=== PATIENT | male | born 2000 | race Caucasian/White ===

== ENCOUNTER 2022-01-27 15:55 | Emergency (ER) | payer BC, SELFPAY ==
--- NOTE | 2022-01-27 15:57 | ED.EAR ---
HPI - Ear Problem General Chief complaint: Ear Stated complaint: Ear Pain Time Seen by Provider: 01/27/22 15:57 Source: patient Mode of arrival: ambulatory Limitations: no limitations History of Present Illness HPI Narrative: Mr. Brown is a 21-year-old male patient presenting to the clinic today with complaints of right ear pain that just began this morning. He reports no fever or chills. Related Data Allergies Allergy/AdvReac Type Severity Reaction Status Date / Time No Known Allergies Allergy Verified 01/27/22 16:07 Review of Systems Review of Systems: Pertinent positives per HPI. Patient denies any fever, chills, rash, headache, visual changes, dizziness, cough, runny nose, sore throat, shortness of breath, chest pain, palpitations, nausea, vomiting, diarrhea, constipation, abdominal pain, or any urinary issues. PMFSH Comments At the time of my signature, I reviewed and agree with the nursing past medical, surgical, social, and family history. There is no relevant family history pertinent to the patient complaint. Exam Narrative: General: Well-developed, well nourished, in no apparent distress Head: Normocephalic, atraumatic Eyes: Pupils equally round and reactive to light bilaterally, EOM intact, sclera and conjunctive clear, no discharge, lids normal Ears: Right TMs intact, red, and bulging, left TM intact and dull, ear canals ceruminous, no drainage, grossly hearing normal. Nose: Nares patent, no discharge, no inflammation, no sinus tenderness. Mouth: Oropharynx without lesions or masses, good dentition, MMM. Neck: Supple, trachea midline, no enlargement of anterior or posterior cervical nodes, no thyroid masses or goiter palpable. Cardio: Regular rate and rhythm, s1 and s2 normal, no murmur appreciated. Resp: Clear to auscultation bilaterally anteriorly and posteriorly, no rhonchi, rales, wheezing or rubs Course Course Emergency Course: Portions of this record may have been created with voice recognition software. Level of Care: Express Care Visit Vital Signs Vital signs: Vital signs reviewed Medical Decision Making MDM Narrative Medical decision making narrative: At the time of visit patient was resting comfortably on the exam table. He has right otitis media. We will send in a prescription for some amoxicillin as prescribed. Supportive measures were discussed and patient voiced understanding of discharge instructions Differential Diagnosis Differential Diagnosis: Otitis media, otitis externa, otalgia, eustachian tube dysfunction Discharge Plan Discharge Clinical Impression: Otitis media Patient Disposition: Home, Self-Care Condition: Stable Instructions: Antibiotic Form, Ear Infection (ED) Additional Instructions: Take any prescribed medications only as directed-amoxicillin as prescribed Tylenol/motrin as needed for pain May use heating pad to alleviate pain Follow up with your PCP in 3-5 days if symptoms persist. Prescriptions: New amoxicillin 875 mg tablet 875 mg PO Q12H 7 Days Qty: 14 0RF Follow-up/Referrals: UNKNOWN,DOCTOR [Non-Staff] - Time of Disposition: 16:13 Quality NIHSS Nursing Documentation ED NIHSS nursing documentation: reviewed/agree
[2022-01-27 16:03] VITALS: BP 148/87; PULSE 81; RESP 20; TEMP 37.3; O2SAT 100
== END 2022-01-27 16:15 | disposition home or self-care (01) ==
PROVIDERS: Emergency Provider Nurse Practitioner Family
DX: H66.91 Otitis media, unspecified, right ear (principal)
CPT/HCPCS: 99213; G0463

== ENCOUNTER 2023-01-09 10:55 | Emergency (ER) | payer BC, SELFPAY ==
[2023-01-09 11:01] VITALS: BP 136/69; PULSE 76; RESP 16; TEMP 36.6; O2SAT 100
--- NOTE | 2023-01-09 11:12 | ED.SKABFB ---
HPI - Skin/Abscess/Foreign Bdy General Chief complaint: Wound/Laceration Stated complaint: Right toe infection Time Seen by Provider: 01/09/23 11:05 Source: patient and RN notes reviewed Mode of arrival: ambulatory Limitations: dementia History of Present Illness HPI narrative: 22-year-old male presents with concern for an infected ingrown toenail. He reports the 1st digit of his right foot has had an ingrown toenail for some time with redness and drainage. Reports in the past they have improved on their own so that is why he waited to seek care. Reports that is gotten worse and has purulent drainage. He denies intervention. He denies fever, aches, chills, sweats. MD complaint: other (Redness) Related Data Allergies Allergy/AdvReac Type Severity Reaction Status Date / Time No Known Allergies Allergy Verified 01/09/23 11:01 Review of Systems Review of Systems: CONSTITUTIONAL: Denies malaise, chills, sweats, or fever. EYES: Denies redness, or discharge. ENT: Denies rhinorrhea, congestion, swollen lips, swollen tongue CARDIOVASCULAR: Denies chest pain, palpitations, or edema. RESPIRATORY: Denies cough or dyspnea. GASTROINTESTINAL: Denies abdominal pain, nausea, vomiting SKIN: Reports redness, swelling purulent drainage next to the nail bed of the 1st digit of the right foot. Denies vesicles, bullae, numbness, pain beyond proportion MUSCULOSKELETAL: Denies joint pain or myalgia. NEUROLOGIC: Denies headache. All systems reviewed & are unremarkable except as noted in HPI and below PMFSH Comments At time of signature, agree with nursing past medical, surgical, social and family history. There is no relevant family history pertinent to the presenting complaint Exam Narrative: GENERAL: Well-appearing, well-nourished, and in no acute distress. HEAD: Normocephalic, atraumatic. EYES: PERRLA, conjunctivae clear ENT: Mucous membranes moist. NECK: Supple. No lymphadenopathy CHEST: Clear to auscultation. No respiratory distress. HEART: Regular rate and rhythm. SKIN: Warm, dry. Erythema, induration, tenderness, warmth with sharp margins noted next to the medial nail bed of the 1st digit of the right foot consistent with paronychia. No vesicles, bullae, necrosis, ecchymosis, crepitus noted. NEURO: Alert and oriented x3. PSYCH: Normal mood and affect Course Course Emergency Course: Patient is aware of diagnosis, understands and agrees to treatment plan. Anticipatory guidance given. Patient agrees to follow-up as directed and is aware of reasons to seek care at the emergency department. Portions of this record may have been created with voice recognition software Level of Care: Express Care Visit Vital Signs Vital signs: Vital Signs Temperature 98 F 01/09/23 11:01 Pulse Rate 76 01/09/23 11:01 Respiratory Rate 16 01/09/23 11:01 Blood Pressure 136/69 01/09/23 11:01 Pulse Oximetry 100 01/09/23 11:01 Oxygen Delivery Room Air 01/09/23 11:01 Temperature 98 F 01/09/23 11:01 Pulse Rate 76 01/09/23 11:01 Respiratory Rate 16 01/09/23 11:01 Blood Pressure 136/69 01/09/23 11:01 Pulse Oximetry 100 01/09/23 11:01 Oxygen Delivery Room Air 01/09/23 11:01 Reviewed. MDM - Skin/Abscess/Foreign Bdy MDM Narrative Medical decision making narrative: Does not appear at this time to be erythema multiforme, bullous, SJS, TEN; no evidence at this time to suggest RMSF, NSTI, endocarditis or Lyme disease; patient looks well, nontoxic and is tolerating oral intake; no neurologic signs or symptoms; no headache, photophobia or neck pain; afebrile. Patient does not have history of of penetrating trauma, laceration, blunt trauma, recent surgery, immunosuppression, malignancy, obesity, alcoholism, corticosteroid use. Discussed the importance of follow-up, patient agrees; question, cellulitis versus necrotizing soft tissue infection versus abscess. Critical Care Time Critical Care Time Critical
== END 2023-01-09 11:16 | disposition home or self-care (01) ==
PROVIDERS: Emergency Provider Nurse Practitioner; PCP Family Medicine
DX: L03.031 Cellulitis of right toe (principal); L60.0 Ingrowing nail
CPT/HCPCS: 99213; G0463

== ENCOUNTER 2023-03-26 17:22 | Emergency (ER) | payer BC, SELFPAY ==
[2023-03-26 17:32] VITALS: BP 134/75; PULSE 61; RESP 16; TEMP 36.6; O2SAT 100
--- NOTE | 2023-03-26 18:01 | ED.GENADULT ---
HPI - General Adult General Chief complaint: Skin/Abscess/Foreign Body Stated complaint: Skin Sore /Toe Source: patient Mode of arrival: ambulatory Limitations: no limitations History of Present Illness HPI narrative: Patient presents for evaluation of increasing nail to the right great toe. He has experienced symptoms for the past 2-3 months. He denies significant pain. He has seen other providers for this and it sounds like he was given one course of bactrim and one course of cephalexin. He has not followed up with podiatry. He is not diabetic. Denies drainage from the site at the present time. No fever, chills, nausea, vomiting. He does not smoke. Related Data Allergies Allergy/AdvReac Type Severity Reaction Status Date / Time No Known Allergies Allergy Verified 01/09/23 11:01 Review of Systems Review of Systems: CONSTITUTIONAL: Denies fever, chills, or sweats. EYES: Denies visual changes, redness, or discharge. ENT: Denies rhinorrhea, congestion, sore throat, or otalgia. CARDIOVASCULAR: Denies chest pain, palpitations, or edema. RESPIRATORY: Denies cough or dyspnea. GASTROINTESTINAL: Denies abdominal pain, nausea, vomiting, or diarrhea. GENITOURINARY: Denies dysuria or hematuria. SKIN:Reports redness to skin surrounding nailplate of right great toe MUSCULOSKELETAL: Reports pain in right great toe. Denies back pain or joint pain NEUROLOGIC: Denies headache, numbness, dizziness, or weakness. PSYCHIATRIC: Denies anxiety or depression. PMFSH Past Medical History Medical History No pertinent past medical history Surgical History Surgical History No pertinent past surgical history Family History Family History Mother Family history non-contributory Social History Social History Smoking status: Former smoker Substance use: never Gender identity (if verbalized by the patient): Male Sexual Orientation (if Verbalized by the Patient): Straight or Heterosexual Exam Narrative: GENERAL: Well-appearing, well-nourished, and in no acute distress. HEAD: Normocephalic, atraumatic. EYES: PERRLA and EOMI. ENT: Nares clear, no rhinorrhea or epistaxis. Mucous membranes moist. Oropharynx without tonsillar hypertrophy exudate or other lesions. Bilateral TMs pearly brice nonbulging NECK: Supple. No adenopathy or masses. No carotid bruits or JVD CHEST: Clear to auscultation. No respiratory distress. No wheezes rales or rhonchi HEART: Regular rate and rhythm. No murmur heard. Normal peripheral pulses. ABDOMEN: Soft, nontender, nondistended, normal active bowel sounds. EXTREMITIES: Normal range of motion. No edema. SKIN: There is swelling to the skin surrounding the nail plate of the right great toe with dried serosanguineous drainage present. Nail is embedded in skin surrounding the nailplate. NEURO: No focal deficits. Alert and oriented x3. PSYCH: Normal mood and affect. Course Course Emergency Course: This is a 22-year-old male who presented for evaluation of an ingrown toenail. Will discharge with cephalexin and Bactrim. He should soak his foot in warm water. Follow up with Podiatry. Ibuprofen for pain. Go to the emergency department for worsening symptoms. Patient in agreement with plan of care. Level of Care: Express Care Visit Vital Signs Vital signs: Vital Signs Temperature 36.6 C 03/26/23 17:32 Pulse Rate 61 03/26/23 17:32 Respiratory Rate 16 03/26/23 17:32 Blood Pressure 134/75 03/26/23 17:32 Pulse Oximetry 100 03/26/23 17:32 Oxygen Delivery Room Air 03/26/23 17:32 Temperature 36.6 C 03/26/23 17:32 Pulse Rate 61 03/26/23 17:32 Respiratory Rate 16 03/26/23 17:32 Blood Pressure 134/75 03/26/23 17:32 Pulse Oximet
== END 2023-03-26 18:04 | disposition home or self-care (01) ==
PROVIDERS: Emergency Provider Nurse Practitioner; PCP Family Medicine
DX: L60.0 Ingrowing nail (principal)
CPT/HCPCS: 99213; G0463

== ENCOUNTER 2023-10-15 15:54 | Emergency (ER) | payer BC, SELFPAY ==
[2023-10-15 16:00] VITALS: BP 129/71; PULSE 69; RESP 20; TEMP 36.9; O2SAT 100
[2023-10-15 16:18] VITALS: BP 129/71; PULSE 69; RESP 20; TEMP 36.9; O2SAT 100
--- NOTE | 2023-10-15 16:19 | ED.URI ---
HPI - URI/Sore Throat General Chief Complaint: Upper Respiratory Infection Stated Complaint: Sore Throat History of Present Illness HPI Narrative: 22y/o male presented for c/o sore throat x2 days. Endorses exposure to strep. Rates pain 2. Denies any associated symptoms. Related Data Home Medications Medication Instructions Recorded Confirmed lisdexamfetamine 30 mg chewable 30 mg PO DAILY 10/15/23 10/15/23 tablet Allergies Allergy/AdvReac Type Severity Reaction Status Date / Time No Known Allergies Allergy Verified 10/15/23 16:10 Review of Systems Review of Systems: CONSTITUTIONAL: Denies body aches, fever, chills, or sweats. EYES: Denies visual changes, redness, or discharge. ENT: reports sore throat Denies rhinorrhea, congestion, or otalgia. CARDIOVASCULAR: Denies chest pain, palpitations, or edema. RESPIRATORY: Denies dyspnea. GASTROINTESTINAL: Denies abdominal pain, nausea, vomiting, or diarrhea. SKIN: Denies rash, itching, or wounds. MUSCULOSKELETAL: Denies back pain, joint pain, or myalgia. NEUROLOGIC: Denies headache PMFSH Past Medical History Medical History No pertinent past medical history Surgical History Surgical History No pertinent past surgical history Family History Family History Mother Family history non-contributory Social History Social History Smoking status: Former smoker Substance use: never Gender identity (if verbalized by the patient): Male Sexual Orientation (if Verbalized by the Patient): Straight or Heterosexual Exam Narrative: GENERAL: well-appearing, no acute distress. EYES: conjunctivae clear ENT: Mucous membranes moist. TMs pearly brice with normal light reflex bilaterally; no tragal tenderness. Oropharynx not erythematous without lesions. Tonsils not enlarged and without exudate. No drooling, no hoarseness, no trismus, uvula midline. No tripod positioning, hot potato voice, or soft palate swelling. NECK: Supple. No lymphadenopathy CHEST: Clear to auscultation, breath sounds equal. No respiratory distress, speaks in full sentences. HEART: Regular rate and rhythm. No murmur heard. SKIN: Warm, dry, no rash. NEURO: Alert and oriented x3. Course Course Emergency Course: Patient is aware of diagnosis, understands and agrees to treatment plan. Anticipatory guidance given. Patient agrees to follow-up as directed and is aware of reasons to seek care at the emergency department. Portions of this record may have been created with voice recognition software Level of Care: Express Care Visit Vital Signs Vital signs: Vital Signs Temperature 98.5 F 10/15/23 16:00 Pulse Rate 69 10/15/23 16:00 Respiratory Rate 20 10/15/23 16:00 Blood Pressure 129/71 10/15/23 16:00 Pulse Oximetry 100 10/15/23 16:00 Oxygen Delivery Room Air 10/15/23 16:00 Temperature 98.5 F 10/15/23 16:18 Pulse Rate 69 10/15/23 16:18 Respiratory Rate 20 10/15/23 16:18 Blood Pressure 129/71 10/15/23 16:18 Pulse Oximetry 100 10/15/23 16:18 Oxygen Delivery Room Air 10/15/23 16:18 MDM - URI/Sore Throat MDM Narrative Medical decision making narrative: Neg strep result reviewed with pt. Advise supportive treatments. Patient is appropriate for outpatient treatment and follow-up. Differential Diagnosis Differential diagnosis: Likely upper respiratory infection, viral infection and pharyngitis Lab Data Labs: Strep Screen Presumptive Negative *(Reference Range: Negative)* Strep Screen Presumptive Negative *(Reference Range: Negative)* Discharge Plan Discharge Clinical Impression: Throat pain
== END 2023-10-15 16:25 | disposition home or self-care (01) ==
PROVIDERS: Emergency Provider Nurse Practitioner Family; PCP Family Medicine
DX: R07.0 Pain in throat (principal); Z87.891 Personal history of nicotine dependence
CPT/HCPCS: 87081; 87880; 99213; G0463

== ENCOUNTER 2025-07-13 09:57 | Emergency (ER) | payer BC, SELFPAY ==
[2025-07-13 10:10] VITALS: BP 141/93; PULSE 83; RESP 18; TEMP 36.9; O2SAT 100
--- OUTSIDE RECORDS SUMMARY | 2025-07-13 10:45 | XMS_ITS | Encounter Summary ---
Author Organization [facility] Address [address] [place] [address] Care Team Providers Care Instructional Supervisor Name Role Phone Unavailable Primary Care Provider Unavailabl e Prior Encounters Date Type Department Care Team Description 08/31/2019 Converted CPS Chart Documents [facility] [address] [place] [address] <No scans attached> 08/31/2019 Converted 13x Documents [facility] [address] [place] [address] <No scans attached> Plan of Treatment Not on file Procedures Procedure Name Priority Date/Time Associated Diagnosis Comments CANCELLED APPOINTMENT Routine 09/23/2018 2:00 AM DIRECTOR OF LABOR AND DELIVERY MISSED APPOINTMENT Routine 05/02/2016 2: 00 AM CDT PERIODIC ORAL EVALUATION - ESTABLISHED PATIENT Routine 10/13/2015 2:00 AM DIRECTOR OF LABOR AND DELIVERY ORAL HYGIENE INSTRUCTIONS Routine 2015 2:00 AM DIRECTOR OF LABOR AND DELIVERY TOPICAL APPLICATION OF FLUORIDE VARNISH Routine 10/13/2015 2:00 AM DIRECTOR OF LABOR AND DELIVERY PROPHYLAXIS - CHILD Routine 10/13/2015 2 :00 AM DIRECTOR OF LABOR AND DELIVERY BITEWINGS - FOUR RADIOGRAPHIC IMAGES Routine 10/13/2015 2:00 AM DIRECTOR OF LABOR AND DELIVERY ADDITIONAL X-RAY Routine 03/08/2015 2:00 AM CDT COMPREHENSIVE ORAL EVALUATION - NEW OR ESTABLISHED PATIENT Routine 03/07/2015 2:00 AM CDT ORAL HYGIENE INSTRUCTIONS Routine 2014 2:00 AM CDT TOPICAL APPLICATION OF FLUORIDE EXCLUDING VARNISH Routine 03/07/2015 2:00 AM CDT 30 SEALANT 1ST MOLAR Routine 03/07/2015 2:00 AM CDT 19 SEALANT 1ST MOLAR Routine 03/07/2015 2:00 AM CDT 14 SEALANT 1ST MOLAR Routine 03/07/2015 2:00 AM CDT 3 SEALANT 1ST MOLAR Routine 03/07/2015 2 :00 AM CDT PROPHYLAXIS - CHILD Routine 03/07/2015 2 :00 AM CDT PANORAMIC RADIOGRAPHIC IMAGE Routine 03/07/2015 2:00 AM CDT BITEWINGS - FOUR RADIOGRAPHIC IMAGES Routine 03/07/2015 2:00 AM CDT ADDITIONAL X-RAY Routine 03/07/2015 2:00 AM CDT SINGLE X-RAY Routine 03/07/2015 2:00 AM CDT Visit Diagnoses Not on file
--- OUTSIDE RECORDS SUMMARY | 2025-07-13 10:45 | XMS_ITS | Clinical Summary ---
Author Organization [facility] Address [address] [place] [address] Care Team Providers Care Cone Tender Name Role Phone Unavailable Primary Care Provider Unavailabl e Social History Tobacco Use Types Packs/Day Years Used Date Smoking Tobacco: Never Assessed Sex and Gender Information Value Date Recorded Sex Assigned at Not on file Legal Sex Male 12:59 AM PST Gender Identity Not on file Sexual Orientation Not on file Plan of Treatment Not on file
--- OUTSIDE RECORDS SUMMARY | 2025-07-13 10:45 | XMS_ITS | Encounter Summary ---
Author Organization [facility] Address 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 Gender Identity Not on file Sexual Orientation Not on file documented as of this encounter Plan of Treatment Not on file documented as of this encounter Procedures Procedure Name Priority Date/Time Associated Diagnosis Comments XR CHEST PA AND LATERAL 2 VW Routine 12/04/2008 8:48 AM CDT documented in this encounter Results * XR CHEST PA AND LATERAL (12/04/2008 8:48 AM CDT) Anatomical Region Laterality Modality Chest Other 12/04/2008 8:48 AM CDT Narrative 12/04/2008 6:25 PM CDT [address] [address] Admit Date: 12/04/2008 RASHID BROWN Sex: M Admit Prov: EDMAR MORSE Date: 2000 Primary Care Prov: ERON CARREON CMRN: [id number] Room: [facility] SSN: [facility] Ordering Prov: N/A Accession Number: [id number] Interpretation TWO-VIEW CHEST, 12/04/2008 History: Fever and labored breathing. Findings: There are no comparison films. The lungs are fully inflated, symmetrically aerated, and moderately hyperexpanded. There are streaky perihilar opacities but no focal consolidation or effusion. The cardiothymic silhouette is within normal limits. IMPRESSION: Air-trapping with mild perihilar opacities. Question viral type pneumonitis and/or reactive airways disease. . Dictated by: TAHIRA PRESLEY 12/04/2008 14:26 Electronically signed by: TAHIRA PRESLEY 12/04/2008 18:24 Transcribed: 12/04/2008 18:06 SJ Procedure Note Tahira Presley - 12/04/2008 [facility] [address] [address] Admit Date: 12/04/2008 RASHID BROWN Sex: M Admit Prov: EDMAR MORSE Date: 2000 Primary Care Prov: ERON CARREON CMRN: [id number] Room: [facility] SSN: IM[facility] SERVICES Ordering Prov: N/A Interpretation TWO-VIEW CHEST, 12/04/2008 History: Fever and labored breathing. Findings: There are no comparison films. The lungs are fullyinflated, symmetrically aerated, and moderately hyperexpanded. There arestreaky perihilar opacities but no focal consolidation or effusion. The cardiothymic silhouette is within normal limits. IMPRESSION: Air-trapping with mild perihilar opacities. Question viral typepneumonitis and/or reactive airways disease. . Dictated by: TAHIRA PRESLEY 12/04/2008 14:26 Electronically signed by: TAHIRA PRESLEY 12/04/2008 18:24 Transcribed: 12/04/2008 18:06 SJ Edmar Morse MD DIAGNOSTIC IMAGING ORDERABLES F inal Result documented in this encounter Visit Diagnoses Not on filedocumented in this encounter Care Teams Case Coordinator Relationship Specialty Start Date End Date Liv Jang MD [address] [id number] PCP - General Pediatrics 06/10/12 documented as of this encounter
--- OUTSIDE RECORDS SUMMARY | 2025-07-13 10:45 | XMS_ITS | Encounter Summary ---
Author Organization [facility] Address 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
--- OUTSIDE RECORDS SUMMARY | 2025-07-13 10:45 | XMS_ITS | Clinical Summary ---
Author Organization [facility] Address [address] [place] [address] Phone Care Team Providers Care Towel Sorter Name Role Phone Liv Jang MD Primary Care Provider [phone] Allergies No known active allergies Medications LISDEXAMFETAMIN E DIMESYLATE (VYVANSE ORAL) Take by mouth. Mom not sure about dose Active ibuprofen (ADVIL) 200 mg tablet Take 800 mg by mouth every 6 hours as needed for Pain, Mild. Active rizatriptan (MAXALT) 10 mg Tablet Take 1 Tablet (10 mg) by mouth every 2 hours as needed for Migraine may repeat in 2 hours; max dose 30mg in 24 hours. 8 Tablet 10/02/2018 Active Active Problems Problem Noted Date Diagnosed Date Headache(784.0) 06/10/2012 Dyslexia 06/10/2012 Immunizations Immunization Administration Dates Next Due (INFANRIX)(6 WKS-6 YRS) DIPT HERIA, TETANUS TOXOIDS, AND ACCELLULAR PERTUSSIS VACCINE (DTAP), 0.5 ML IM 02/26/2008,10/18/2006,06/08/2003,2002,02/05/2003 (IPOL)(6 WKS AND UP) POLIOVI TATIANA VACCINE, INACTIVATED (IPV), 3 DOSE, SUBCUT OR IM 02/26/2008,06/08/2003,04/09/2003,2002 (M-M-R II/PRIORIX)(12 MO UP) MEASLES, MUMPS AND RUBELLA VIRUS VACCINE, 0.5 ML IM/SUBCUT 08/28/2007,12/15/2003 (VARIVAX)(12 MOS UP)VARICELL A VIRUS VACCINE (PF) 0.5 ML, SUB CUT 02/26/2008,12/15/2003 HIB, Unspecified Formulation 12/15/2003,04/09/20 03,02/05/2003 Hepatitis A Vaccine 02/26/2008,10/18/2006 Hepatitis B Vaccine 06/08/2003,04/09/2003,2002 Pneumococcal conjugate, unsp ecified formulation 10/18/2006,06/08/2003,04/09/2003 Family History Medical History Relation Name Comments Other Father split personali ty disorder,ADHD,seizures Asthma Mother Relation Name Status Comments Father Alive Mother Alive Sister Alive 1/2 sib Social History Tobacco Use Types Packs/Day Years Used Date Smoking Tobacco: Never Smokeless Tobacco: Never Sex and Gender Information Value Date Recorded Sex Assigned at Not on file Legal Sex Male 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 HAIR Gender Identity Not on file Sexual Orientation Not on file Last Filed Vital Signs Vital Sign Reading Time Taken Comments Blood Pressure 102/57 10/02/2018 11:38 PM MANAGER HAIR Pulse 70 10/02/2018 10:54 PM MANAGER HAIR Temperature 37.1 C (98.8 F) 10/02/2018 7:55 PM MANAGER HAIR Respiratory Rate 18 10/02/2018 11:38 PM MANAGER HAIR Oxygen Saturation 99% 10/02/2018 11:38 PM MANAGER HAIR Inhaled Oxygen Concentration - - Weight 84.5 kg (186 lb 4.6 oz) 10/02/2018 7:55 P M MANAGER HAIR Height 132.1 cm (4' 4) 06/10/2012 10:40 AM CDT Body Mass Index - - Plan of Treatment Health Maintenance Due Date Last Done Comments DTAP/TDAP/TD VACCINES (6 - Tdap) 2013 02/26/2008, 10/18/2006, 06/08/2003, Additional history exists HPV VACCINES (1 - Male 3-dos e series) 2017 INFLUENZA VACCINE (#1) 2025 HEPATITIS B VACCINES Completed 06/08/2003, 04/09/2003, 02/05/2003 Insurance [employer] Care Teams Towel Sorter Relationship Specialty Start Date End Date Liv Jang MD [address] [address] PCP - General Pediatrics 06/10/12
--- OUTSIDE RECORDS SUMMARY | 2025-07-13 10:45 | XMS_ITS | Clinical Summary ---
Author Organization [facility] Address [address] [place] [address] Phone Care Team Providers Care Software Clerk Name Role Phone Sergio Hughes MD Primary Care Provider [phone] Allergies No known active allergies Medications albuterol 108 (90 Base) MCG/ACT Aerosol SolutionIndicati ons:Cough,Shortn ess of breath,Uncomplic ated asthma, unspecified asthma severity, unspecified whether persistent take 1-2 Puffs by inhalation every 4 hours as needed for Wheezing or Cough. 1 Inhaler 0 Active Active Problems No known active problems Social History Tobacco Use Types Packs/Day Years Used Date Smoking Tobacco: Never Smokeless Tobacco: Never Comments:smokes pot daily no t tobacco Sex and Gender Information Value Date Recorded Sex Assigned at Not on file Legal Sex Male 5:10 PM CDT Gender Identity Not on file Sexual Orientation Not on file Last Filed Vital Signs Vital Sign Reading Time Taken Comments Blood Pressure 114/60 04/12/2020 5:31 PM CDT Pulse 80 04/12/2020 5:31 PM CDT Temperature 36.4 C (97.6 F) 04/12/2020 5:31 PM CDT Respiratory Rate 16 04/12/2020 5:31 PM CDT Oxygen Saturation 98% 04/12/2020 5:31 PM CDT Inhaled Oxygen Concentration - - Weight 73.5 kg (162 lb) 04/12/2020 5:31 PM CDT Height - - Body Mass Index - - Plan of Treatment Health Maintenance Due Date Last Done Comments Hepatitis C Virus (HCV) Screening 2002 TdaP Immunization 2002 Varicella Immunization (1 of 2 - 13+ 2-dose series) 12/10/2015 Human Papillomavirus (HPV) Immunization (1 - Male 3-dose series) 2017 Meningococcal B Immunization (1 of 2 - Standard) 2018 Influenza Immunization (#1) 2025 SARS-COV-2 Immunization (3 - 2024- season) 2025 11/27/2020, 11/06/2020 Respiratory Syncytial Virus (RSV) Immunization (Adult) (1 - 1-dose 75+ series) 2077 Hepatitis B Immunization Completed 003, 04/09/2003, 02/05/2003 Pneumococcal Immunization Combined Aged Out 10/18/2006, 06/08/2003, 04/09/2003 No longer eligible based on patient's age to complete this topic Hepatitis A Immunization Discontinued 008, 10/18/2006 Meningococcal Immunization (ACWY) Aged Out No longer eligible based on patient's age to complete this topic Rotavirus Immunization Aged Out No lo nger eligible based on patient's age to complete this topic Insurance [place] Care Teams Software Clerk Relationship Specialty Start Date End Date Sergio Hughes MD [address] [facility] [address] [place] [address] PCP - General Pediatrics 04/12/20
--- OUTSIDE RECORDS SUMMARY | 2025-07-13 10:45 | XMS_ITS | Encounter Summary ---
Author Organization [facility] Address 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
--- OUTSIDE RECORDS SUMMARY | 2025-07-13 10:45 | XMS_ITS | Encounter Summary ---
Author Organization [facility] Address 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 Gender Identity Not on file Sexual Orientation Not on file documented as of this encounter Plan of Treatment Not on file documented as of this encounter Procedures Procedure Name Priority Date/Time Associated Diagnosis Comments CHG DTAP VACCINE <7 YO IM VFC 10/18/2006 12:00 AM SALON/SPA MANAGER CHG PNEUMOCOCCAL VACCINE <5 YO IM VFC 10/18/2006 12:00 AM SALON/SPA MANAGER CHG HEPATITIS A VACCINE PED ADOL IM 2 DOSE VFC 10/18/2006 12:00 AM SALON/SPA MANAGER documented in this encounter Visit Diagnoses Not on filedocumented in this encounter Care Teams Grating Machine Operator Relationship Specialty Start Date End Date Liv Jang MD [address] [place] [address] PCP - General Pediatrics 06/10/12 documented as of this encounter
--- NOTE | 2025-07-13 11:02 | ED.GENADULT ---
HPI - General Adult General Chief complaint: Skin/Abscess/Foreign Body Stated complaint: Skin Sore Source: patient Mode of arrival: ambulatory Limitations: no limitations History of Present Illness HPI narrative: Patient presents for evaluation of irritation to the left nipple for the last month. Symptoms started after his girlfriend sucked on his nipples. He has noted some itching, redness and cracked appearance to the skin. He has also noted some watery yellow discharge. Denies associated pain. No personal or family history of breast cancer. Related Data Allergies Allergy/AdvReac Type Severity Reaction Status Date / Time No Known Allergies Allergy Verified 07/13/25 10:09 Review of Systems Review of Systems: CONSTITUTIONAL: Denies fever, chills, or sweats. EYES: Denies visual changes, redness, or discharge. ENT: Denies rhinorrhea, congestion, sore throat, or otalgia. CARDIOVASCULAR: Denies chest pain, palpitations, or edema. RESPIRATORY: Denies cough or dyspnea. GASTROINTESTINAL: Denies abdominal pain, nausea, vomiting, or diarrhea. GENITOURINARY: Denies dysuria or hematuria. SKIN: Reports itching, redness, cracked appearance to nipple with some watery yellow discharge MUSCULOSKELETAL: Denies back pain, joint pain, or myalgia. NEUROLOGIC: Denies headache, numbness, dizziness, or weakness. PSYCHIATRIC: Denies anxiety or depression. PMFSH Past Medical History Medical History No pertinent past medical history Surgical History Surgical History No pertinent past surgical history Family History Family History Mother Family history non-contributory Social History Social History Smoking status: Former smoker Substance use: never Gender identity (if verbalized by the patient): Male Sexual Orientation (if Verbalized by the Patient): Straight or Heterosexual Exam Narrative: GENERAL: Well-appearing, well-nourished, and in no acute distress. HEAD: Normocephalic, atraumatic. EYES: PERRLA and EOMI. ENT: Nares clear, no rhinorrhea or epistaxis. Mucous membranes moist. Oropharynx without tonsillar hypertrophy exudate or other lesions. Bilateral TMs pearly brice nonbulging NECK: Supple. No adenopathy or masses. No carotid bruits or JVD CHEST: Clear to auscultation. No respiratory distress. No wheezes rales or rhonchi HEART: Regular rate and rhythm. No murmur heard. Normal peripheral pulses. ABDOMEN: Soft, nontender, nondistended, normal active bowel sounds. EXTREMITIES: Normal range of motion. No edema. SKIN: Left nipple appears dry and cracked. No visible or palpable lesions or masses. No discharge. NEURO: No focal deficits. Alert and oriented x3. PSYCH: Normal mood and affect. Course Course Emergency Course: This is a 24-year-old male who presented for evaluation of irritation to the left nipple. Will tx with Bactrim and Keflex. He was advised to follow-up with his primary care provider at the completion of antibiotics to ensure he does not need mammogram or ultrasound. I do not appreciate any masses on exam today. He should go to the emergency department for worsening symptoms. Patient in agreement with plan of care. Level of Care: Express Care Visit Vital Signs Vital signs: Vital Signs Temperature 36.9 C 07/13/25 10:10 Pulse Rate 83 07/13/25 10:10 Respiratory Rate 18 07/13/25 10:10 Blood Pressure 141/93 H 07/13/25 10:10 Pulse Oximetry 100 07/13/25 10:10 Oxygen Delivery Room Air 07/13/25 10:10 Temperature 36.9 C 07/13/25 10:10 Pulse Rate 83 07/13/25 10:10 Respiratory Rate 18 07/13/25 10:10 Blood Pressure 141/93 H 07/13/25 10:10 Pulse Oximetry 100 07/13/25 10:10 Oxygen Delivery Room Air 07/13/25 10:10 MDM Differential Diagnosis Differential Diagnosis: Mastitis verses infected cyst verses folliculitis versus breast cancer versus other Discharge Plan Discharge Clinical Impression: Infection of nipple Patient Disposition: Home Condition: Stable Instructions: Antibiotic Form, Acute Wounds (DC) Additional Instructions: PLEASE FOLLOW UP WITH DR ALCAZAR AT COMPLETION OF ANTIBIOTICS FOR REASSESSMENT AND TO DETERMINE WHETHER A MAMMOGRAM OR ULTRASOUND IS CLINICALLY INDICATED Patient Language: Mauritian Prescriptions: New sulfamethoxazole-trimethoprim [Bactrim DS] 800-160 mg tablet 1 tablet PO Q12H Qty: 20 0RF cephalexin 500 mg capsule 500 mg PO Q6H 10 Days Qty: 40 0RF Follow-up/Referrals: Nahomi,Clinton Hitchcock DO [Primary Care Provider, Unknown] Time of Disposition: 11:01
== END 2025-07-13 11:08 | disposition home or self-care (01) ==
PROVIDERS: Emergency Provider Nurse Practitioner; PCP Family Medicine
DX: N61.0 Mastitis without abscess (principal); Z87.891 Personal history of nicotine dependence
CPT/HCPCS: 99213; G0463